=== PATIENT | female | born 1975 | race Caucasian/White ===

== ENCOUNTER → 2023-11-01 10:26 | Outpatient (BNVA) | payer OTHER, SELFPAY | PROVIDERS: PCP Internal Medicine; Referring Provider Internal Medicine; Visit Provider Internal Medicine | DX: E83.52 Hypercalcemia (principal); E05.90 Thyrotoxicosis, unspecified without thyrotoxic crisis or storm; E55.9 Vitamin D deficiency, unspecified | CPT/HCPCS: 36415; 80053; 82306; 82310; 83516; 83970; 84439; 84443; 84480; 86376; 86800 ==

== ENCOUNTER 2024-01-02 09:01 | Outpatient (CLI) | payer OTHER, SELFPAY ==
[2024-01-02 10:39] LABS: Alanine Aminotransferase 11 U/L (0-33); Albumin Level 4.2 g/dL (3.5-5.2); Alkaline Phosphatase 60 U/L (35-105); Anion Gap 12.9 (5-19); Aspartate Amino Transferase 14 U/L (0-32); Blood Urea Nitrogen 14 mg/dL (6-20); Calcium 9.5 mg/dL (8.5-10.5); Carbon Dioxide 25 mmol/L (22-29); Chloride 105 mmol/L (98-107); Globulin 2.5 g/dL (1.3-4.6); Glomerular Filtration Rate 106.3 mL/min (90-130); Glucose 82 mg/dL (65-115); Osmolality Calculated 288 mOsm/kg (285-295); Potassium 3.9 mmol/L (3.5-5.1); Sodium 139 mmol/L (136-145); Thyroid Stimulating Hormone 2.54 uIU/mL (0.27-4.20); Total Bilirubin 0.6 mg/dL (0.15-1.2); Total Protein 6.7 g/dL (6.6-8.7)
[2024-01-02 10:40] LABS: Free T4 Free Thyroxine 1.03 ng/dL (0.82-1.77)
[2024-01-03 11:49] LABS: T3 Total 111 ng/dL (76-181)
== END 2024-01-02 09:02 | disposition home or self-care (01) ==
PROVIDERS: PCP Internal Medicine; Visit Provider Internal Medicine
DX: E83.52 Hypercalcemia (principal); E05.90 Thyrotoxicosis, unspecified without thyrotoxic crisis or storm; E55.9 Vitamin D deficiency, unspecified
CPT/HCPCS: 36415; 80053; 84439; 84443; 84480

== ENCOUNTER 2024-07-12 15:12 | Outpatient (CLI) | payer OTHER, SELFPAY ==
[2024-07-12 16:18] LABS: 25 Hydroxy Vitamin D 32 ng/mL (30-100); Thyroid Stimulating Hormone 2.49 uIU/mL (0.27-4.20)
[2024-07-12 16:46] LABS: Free T4 Free Thyroxine 1.14 ng/dL (0.82-1.77)
== END 2024-07-12 15:13 | disposition home or self-care (01) ==
LOC: LAB 15:13
PROVIDERS: PCP Internal Medicine; Visit Provider Internal Medicine
DX: E05.90 Thyrotoxicosis, unspecified without thyrotoxic crisis or storm (principal); E55.9 Vitamin D deficiency, unspecified
CPT/HCPCS: 36415; 82306; 84439; 84443